=== PATIENT | male | born 1955 | race Asian ===

== ENCOUNTER 2023-06-21 14:49 | Inpatient (IN) | payer MEDICAID ==
[~2023-06-21] VITALS: Ht 165.1 cm; Wt 63.5 kg
[2023-06-21 14:52] VITALS: BP_SYST 144; PULSE 98; RESP 18; TEMP 97.2; O2SAT 100
[2023-06-21 16:04] LABS: BASOPHILS % (AUTO) 0.2 % (0.0-2.0); EOSINOPHILS % (AUTO) 0.1 % (0.0-4.0); HEMOGLOBIN 14.5 g/dL (14.0-18.0); LYMPHOCYTES % (AUTO) 5.7 % (20.5-51.5); MEAN CORPUSCULAR HEMOGLOBIN 29 pg (27-31); MEAN CORPUSCULAR HGB CONC 33 % (32-36); MEAN CORPUSCULAR VOLUME 88 fL (79.0-98.0); MONOCYTES % (AUTO) 6.2 % (1.7-9.3); NEUTROPHILS # (AUTO) 14.9 K/uL (1.8-7.7); NEUTROPHILS % (AUTO) 87.8 % (40.0-70.0); PLATELET COUNT (AUTO) 280 K/uL (130-430); RED BLOOD CELL COUNT(AUTO) 5.01 MIL/uL (4.2-6.2); RED CELL DISTRIBUTION WIDTH 14.7 % (9.0-15.0)
[2023-06-21 16:08] LABS: ALBUMIN 4.2 g/dL (3.4-4.8); BILIRUBIN,DIRECT 0.2 mg/dL (0.0-0.3); CALCIUM 8.9 mg/dL (8.4-11.0); TOTAL BILIRUBIN 0.9 mg/dL (0.0-1.0); TOTAL PROTEIN, SERUM 8.2 g/dL (6.4-8.3)
[2023-06-21 17:26] LABS: BILIRUBIN,URINE NEGATIVE (NEGATIVE); BLOOD, URINE NEGATIVE (NEGATIVE); CLARITY/URINE CLEAR (CLEAR); COLOR,URINE YELLOW (YELLOW); GLUCOSE,URINE NEGATIVE (NEGATIVE); KETONES,URINE NEGATIVE (NEGATIVE); LEUKOCYTE ESTERASE ,URINE NEGATIVE (NEGATIVE); NITRITE, URINE NEGATIVE (NEGATIVE); PH,URINE 6.5 (5.0-8.0); PROTEIN URINE NEGATIVE (NEGATIVE); UROBILINOGEN,URINE 0.2 (0.2-1.0)
[2023-06-21] MEDS: NACL 0.9% 1,000 ML IV ONE (17:40)
[2023-06-21] MEDS: ONDANSETRON HCL 4 MG/2 ML VIAL IVP ONE (17:56)
[2023-06-21] MEDS: MORPHINE 4 MG INJ. 4 MG/ML VIAL IVP ONE (17:58)
[2023-06-21] MEDS ORDERED: MORPHINE 4 MG INJ. 4 MG/ML VIAL IVP PRN (20:30)
[2023-06-21] MEDS ORDERED: ONDANSETRON HCL 4 MG/2 ML VIAL IVP PRN (20:30)
[2023-06-21] MEDS ORDERED: ALLO100T PO (20:35)
[2023-06-21] MEDS ORDERED: AMLO5TAB4 PO (20:35)
[2023-06-21] MEDS ORDERED: PIPERACILLIN/TAZOBACTAM 3.375 GM/VIAL (ZOSYN) IV ONE ×2 (21:40→23:54)
[2023-06-21] MEDS: GOLYTELY / COLYTE SOLUTION 4 LITERS PO ONE (21:50)
[2023-06-21] MEDS: PIPERACILLIN/TAZO 3.375 GM in NS 50 ML IV SCH (21:52)
[2023-06-22] MEDS ORDERED: ACETAMINOPHEN 325 MG TABLET PO PRN
[2023-06-22] MEDS ORDERED: PIPERACILLIN/TAZOBACTAM 3.375 GM/VIAL (ZOSYN) IV ONE (07:04)
[2023-06-22 07:53] LABS: BASOPHILS % (AUTO) 0.2 % (0.0-2.0); EOSINOPHILS # (AUTO) 0.3 K/uL (0.0-0.4); EOSINOPHILS % (AUTO) 2.6 % (0.0-4.0); HEMOGLOBIN 13.2 g/dL (14.0-18.0); LYMPHOCYTES # (AUTO) 1.8 K/uL (1.0-5.5); LYMPHOCYTES % (AUTO) 17.4 % (20.5-51.5); MEAN CORPUSCULAR HEMOGLOBIN 30 pg (27-31); MEAN CORPUSCULAR HGB CONC 34 % (32-36); MEAN CORPUSCULAR VOLUME 88 fL (79.0-98.0); MONOCYTES # (AUTO) 0.9 K/uL (0.0-1.0); MONOCYTES % (AUTO) 8.8 % (1.7-9.3); NEUTROPHILS # (AUTO) 7.4 K/uL (1.8-7.7); PLATELET COUNT (AUTO) 258 K/uL (130-430); RED BLOOD CELL COUNT(AUTO) 4.41 MIL/uL (4.2-6.2); RED CELL DISTRIBUTION WIDTH 14.8 % (9.0-15.0); WHITE BLOOD COUNT (AUTO) 10.5 K/uL (4.8-10.8)
[2023-06-22 08:42] LABS: ALBUMIN 3.3 g/dL (3.4-4.8); CALCIUM 8.5 mg/dL (8.4-11.0); CREATININE 1.14 mg/dL (0.55-1.30); FREE T4 (FREE THYROXINE) 0.9 ng/dl (0.8-1.5); THYROID STIMULATING HORMONE 1.04 uIu/mL (0.36-3.74); TOTAL BILIRUBIN 1.7 mg/dL (0.0-1.0); TOTAL PROTEIN, SERUM 6.9 g/dL (6.4-8.3)
[2023-06-22] MEDS ORDERED: ALLOPURINOL 100 MG TABLET (ZYLOPRIM) PO SCH (09:00)
[2023-06-22] MEDS: amLODIPine BESYLATE 5 MG TABLET PO SCH (09:35)
[2023-06-22] MEDS: TAMSULOSIN HCL 0.4 MG CAP PO SCH (09:35)
[2023-06-22 10:23] VITALS: BP_SYST 131; PULSE 64; RESP 16; TEMP 98.6; O2SAT 96
[2023-06-22 10:37] VITALS: O2SAT 96
[2023-06-22] MEDS: PIPERACILLIN/TAZO 3.375 GM in NS 50 ML IV SCH (12:26)
[2023-06-22 15:10] VITALS: BP_SYST 108; PULSE 63; RESP 16; TEMP 97.8; O2SAT 95
[2023-06-22 20:00] VITALS: BP_SYST 140; PULSE 76; RESP 18; TEMP 97.7; O2SAT 98
[2023-06-23] VITALS: BP_SYST 136; PULSE 72; RESP 18; TEMP 97.2; O2SAT 96
[2023-06-23] MEDS: MEPERIDINE 100 MG INJ. 100 MG/ML VIAL ONE (06:42)
[2023-06-23] MEDS: MIDAZOLAM HCL 5 MG/5 ML VIAL ONE (06:42)
[2023-06-23 08:07] LABS: % FREE PSA 27.1 % (.); CEA 2.4 ng/mL (0.0-4.7); FREE PSA 0.38 ng/mL; PROSTATE SPECIFIC AG TOTAL 1.4 ng/mL (0.0-4.0)
[2023-06-23 08:10] VITALS: BP_SYST 135; PULSE 58; RESP 18; TEMP 98.4; O2SAT 98
[2023-06-23] MEDS: fentaNYL CITRATE/PF 100 MCG/2 ML AMP ONE (09:34)
[2023-06-23 10:32] VITALS: BP_SYST 120; PULSE 60; RESP 18; TEMP 98; O2SAT 97
[2023-06-23] MEDS: ALLOPURINOL 100 MG TABLET (ZYLOPRIM) PO SCH (11:22)
[2023-06-23 11:46] VITALS: BP_SYST 119; PULSE 52; RESP 17; TEMP 97.7; O2SAT 98
[2023-06-23 16:37] VITALS: BP_SYST 127; PULSE 59; RESP 16; TEMP 97.2; O2SAT 97
[2023-06-23] MEDS: DOCUSATE SODIUM 250 MG CAPSULE PO ONE (18:05)
[2023-06-23 20:48] VITALS: BP_SYST 126; PULSE 70; RESP 19; TEMP 97.7; O2SAT 97
[2023-06-23] MEDS: DOCUSATE SODIUM 250 MG CAPSULE PO SCH (21:00)
[2023-06-24] VITALS (7 sets, daily range): BP systolic 112–142; PULSE 65–69; RESP 16–17; TEMP 97.1–98.1; O2SAT 96–98
[2023-06-24] MEDS ORDERED: TAMS0.4C96 PO (17:11)
[2023-06-24] MEDS ORDERED: AUG875 PO (17:12)
[2023-06-24] MEDS ORDERED: DOCU250C71 PO (17:14)
[2023-06-24] MEDS ORDERED: LACT1CAP89 PO (17:15)
== END 2023-06-24 17:11 | disposition home or self-care (01) | DRG 254 ==
LOC: SED 14:49 → SMU 20:20
PROVIDERS: ADMIT Internal Medicine; ATTEND Internal Medicine
PROC: 0DBL8ZZ Excision of Transverse Colon, Via Natural or Artificial Opening Endoscopic (ICD-10-PCS; principal; 2023-06-23 09:30)
DX: K62.89 Other specified diseases of anus and rectum (principal); R65.10 Systemic inflammatory response syndrome (SIRS) of non-infectious origin without acute organ dysfunction; I10 Essential (primary) hypertension; K52.89 Other specified noninfective gastroenteritis and colitis; K63.5 Polyp of colon; N32.0 Bladder-neck obstruction; K64.8 Other hemorrhoids; N40.1 Benign prostatic hyperplasia with lower urinary tract symptoms; R33.9 Retention of urine, unspecified; Z79.899 Other long term (current) drug therapy
CPT/HCPCS: 36415; 45385; 80048; 80053; 80076; 81001; 81003; 82378; 83690; 84153; 84439; 84443; 85025; 88305; 96361; 96374; 96375; 99285; J2175; J2250; J2270; J2405; J2543; J3010